=== PATIENT | male | born 1945 | race African-American/Black ===

== ENCOUNTER 2023-01-13 08:08 | Outpatient (OUT) | payer MEDICARE, OTHER, SELFPAY ==
--- NOTE | 2023-01-13 09:04 | CA_ITS ---
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 (right STONE 0.81, left STONE 0.82) Electronically Signed On 01-14-2023 7:16:46 EDT by LUZ ELENA JEFFERSON
== END 2023-01-13 08:09 | disposition home or self-care (01) ==
LOC: CARD 08:08
PROVIDERS: PCP Family Medicine
DX: I70.203 Unspecified atherosclerosis of native arteries of extremities, bilateral legs (principal)
CPT/HCPCS: 93923

== ENCOUNTER 2023-07-22 14:23 | Outpatient (OUT) | payer MEDICARE, OTHER, SELFPAY ==
--- NOTE | 2023-07-22 15:16 | CA_ITS ---
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
== END 2023-07-22 14:24 | disposition home or self-care (01) ==
LOC: CARD 14:23
PROVIDERS: PCP Family Medicine
DX: I73.9 Peripheral vascular disease, unspecified (principal)
CPT/HCPCS: 93923

== ENCOUNTER 2024-01-28 07:31 | Outpatient (OUT) | payer MEDICARE, OTHER, SELFPAY ==
--- OUTSIDE RECORDS SUMMARY | 2024-01-28 07:33 | XMS_ITS | CCD ---
Author Organization [facility] Care Team Providers Care [place] [facility] Director Name Role Phone DR MIHIR VERDE Attending Unavailable MEHREEN, DR ASH Consulting Unavailable MEHREEN, DR ASH Admitting Unavailable LULA, DR SEVERIANO Mcqueen Primary Care Unavailable LULA, DR SEVERIANO Mcqueen Attending Unavailable LULA, DR SEVERIANO Mcqueen Primary Care Unavailable LULA, DR SEVERIANO Mcqueen Admitting Unavailable ZIEBER, DR SLAVA Mckeon Consulting Unavailable LULA, DR SEVERIANO Mcqueen Consulting Unavailable Severiano Cotton MD Primary Care Provider MIHIR VERDE Attending Unavailable SEVERIANO COTTON Referring Unavailable SEVERIANO COTTON Primary Care Unavailable CHELLE BAL Attending Unavailable SEVERIANO COTTON Referring Unavailable SEVERIANO COTTON Primary Care Unavailable Allergies Allergy Classification Reported Allergen(s) Allergy Type Date of Onset Reaction(s) Facility (7 sources) Penicillins; Translations: [PENICILLINS] Propensity to adverse reactions to drug 07-06-2018 [facility] Medications Current Medications Medication Drug Class(es) Dates Sig (Normalized) Sig (Original) aspirin 81 mg delayed release oral tablet (5 sources) Platelet Aggregation Inhibitor, Nonsteroidal Anti-inflammatory Drug take 1 tablet by mouth in the morning aspirin 81 mg Take 1 tablet (81 mg total) by mouth in the morning. 0 Active cilostazol 100 mg oral tablet (5 sources) Phosphodiesterase 3 Inhibitor Start: 06-28-2023 take 1 tablet by mouth twice daily at bedtime cilostazoL (PLETAL) 100 mg tablet Indications: PAD (peripheral artery disease) (CMS-HCC) , Claudication (CMS-HCC) TAKE 1 TABLET BY MOUTH TWICE DAILY (MORNING AND AT BEDTIME) 180 tablet 0 06/28/2023 Active Problems Active Problems Problem Classification Problem Date Documented Da te Episodic/Chronic Cancer of kidney and renal pelvis (11 sources) Malignant tumor of kidney; Translations: [Malignant neoplasm of unspecified kidney, except renal pelvis] Onset: 09-21-2018 Resolved: 01-26-2019 04-13-2023 Chronic Disorders of lipid metabolism (7 sources) Hyperlipidemia; Translations: [Hyperlipidemia, unspecified] Onset: 01-19-2019 01-19-2019 Chronic Osteoarthritis (5 sources) Arthritis; Translations: [Unspecified osteoarthritis, unspecified site] Onset: 01-19-2019 01-19-2019 Chronic Peripheral and visceral atherosclerosis (13 sources) Peripheral vascular disease, unspecified; Translations: [Intermittent claudication] Onset: 01-19-2019 Chronic Thyroid disorders (5 sources) Thyroid nodule; Translations: [Nontoxic single thyroid nodule] Onset: 01-19-2019 01-19-2019 Chronic Past or Other Problems Problem Classification Problem Date Documented Da te Episodic/Chronic Essential hypertension (5 sources) Hypertensive disorder; Translations: [Essential (primary) hypertension] Onset: 01-19-2019 Resolved: 09-27-2023 01-19-2019 Chronic Nonspecific chest pain (5 sources) Precordial pain; Translations: [Precordial pain] Onset: 06-26-2022 06-26-2022 Episodic Other aftercare (1 source) 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 Dose reduction techniques were achieved by using automated exposure control and/or adjustment of mA and/or kV according to patient size and/or use of iterative reconstruction technique. FINDINGS: LUNGS: 4 mm nodule within right middle lobe adjacent the minor fissure, unchanged. Moderate emphysematous changes. No acute infiltrates. PLEURA: No mass, effusion, or pneumothorax. VASCULATURE: No abnormality. MITCH: Calcified right hilar lymph nodes compatible with chronic granulomatous disease. MEDIASTINUM: No mass or adenopathy. CARDIAC: No enlargement or pericardial thickening. AORTA: No aneurysm or dissection. CHEST WALL: No mass or axillary adenopathy. BONES: No bone lesion or fracture. LIMITED ABDOMEN: A few small hepatic cysts versus hemangiomas. No suspicious findings. Limited images of the upper abdomen. OTHER: Negative. IMPRESSION: 1. Stable small 4 mm nodule within right middle lobe, nonspecific. Consider follow-up imaging in one year to document stability. 2. Evidence of chronic granulomatous disease. 3. Moderate emphysematous changes. Electronically authenticated by: SLAVA MATTSON Date: 2021-10-23 14:54 Normal [facility] PROF CHEM 8 (BAS METB)on Anion gap [Moles/Vol] 14.1 mmol/L Normal [facility] Comment on above: Performed By: #### B MP #### [facility] [address] [address] [address] Michel Underwood Calcium [Mass/Vol] 8.7 mg/dL Normal 8.5-10.1 [facility] Comment on above: Performed By: #### B MP #### [facility] [address] [address] [address] Michel Underwood Chloride [Moles/Vol] 104 mmol/L Normal 98-107 [facility] Comment on above: Performed By: #### B MP #### [facility] [address] [address] [address] Michel Underwood CO2 [Moles/Vol] 24.9 mmol/L Normal 22.0-30.0 [facility] Comment on above: Performed By: #### B MP #### [facility] [address] [address] [address] Michel Underwood Creatinine [Mass/Vol] 1.40 mg/dL Critically high 0.66-1.25 [facility] Comment on above: Performed By: #### B MP #### [facility] [address] [address] [address] Michel Underwood EGFR-AF AUSTRIAN 60 mL/min/1.73m2 Normal >=60 [facility] Comment on above: Performed By: #### B MP #### [facility] [address] [address] [address] Michel Underwood EGFR-NON AF AUSTRIAN 50 mL/min/1.73m2 Critically low >=60 [facility] Comment on above: Performed By: #### B MP #### [facility] [address] [address] [address] Michel Underwood Glucose [Mass/Vol] 92 mg/dL Normal 74-106 [facility] Comment on above: Performed By: #### B MP #### [facility] [address] [address] [address] Michel Underwood Potassium [Moles/Vol] 4.0 mmol/L Normal 3.4-5.0 [facility] Comment on above: Performed By: #### B MP #### [facility] [address] [address] [address] Michel Underwood Sodium [Moles/Vol] 139 mmol/L Normal 137-145 [facility] Comment on above: Performed By: #### B MP #### [facility] [address] [address] [address] Michel Underwood Urea nitrogen [Mass/Vol] 18.0 mg/dL Normal 7.0-18.0 [facility] Comment on above: Performed By: #### B MP #### [facility] [address] [address] [address] Michel Underwood Urea nitrogen/Creatini ne [Mass ratio] 12.9 mg/mg Normal [facility] Comment on above: Performed By: #### B MP #### [facility] [address] [address] [address] Michel Undrewood Vital Signs Date Time Vital Sign Value Performing Clinician Facility 09-27-2023 12:54-0400 Body height 180.3 cm Chelle ROBERTS Work Phone: [facility] 09-27-2023 12:54-0400 Body mass index (BMI) [Ratio] 25.38 kg/m2 Chelle ROBERTS Work Phone: [facility] [employer] [facility] 09-27-2023 12:54-0400 Body weight 82.56 kg Chelle ROBERTS Work Phone: [facility] [employer] [facility] 09-27-2023 12:54-0400 Diastolic blood pressure 74 mm[Hg] Chelle ROBERTS Work Phone: [facility] [employer] [facility] 09-27-2023 12:54-0400 Heart rate 87 /min Chelle ROBERTS Work Phone: [facility] [employer] [facility] 09-27-2023 12:54-0400 SaO2% (BldA) [Mass fraction] 95 % Chelle ROBERTS Work Phone: [facility] [employer] [facility] 09-27-2023 12:54-0400 Systolic blood pressure 112 mm[Hg] hCelle ROBERTS Work Phone: [facility] [employer] [facility] 08-05-2023 14:01-0500 Diastolic blood pressure 80 mm[Hg] Mihir Verde MD Work Phone: [facility] [employer] [facility] 08-05-2023 14:01-0500 Heart rate 80 /min Mihir Verde MD Work Phone: [facility] [employer] [facility] 08-05-2023 14:01-0500 Systolic blood pressure 130 mm[Hg] Mihir Verde MD Work Phone: [facility] [employer] [facility] 08-05-2023 14:00-0500 Body height 180.3 cm Mihir Verde MD Work Phone: [facility] [employer] [facility] 08-05-2023 14:00-0500 Body mass index (BMI) [Ratio] 25.83 kg/m2 Mihir Verde MD Work Phone: [facility] [employer] [facility] 08-05-2023 14:00-0500 Body weight 84.01 kg Mihir Verde MD Work Phone: [facility] [employer] [facility] 08-05-2023 14:00-0500 Respiratory rate 18 /min Mihir Verde MD Work Phone: [facility] [employer] [facility] 08-05-2023 14:00-0500 SaO2% (BldA) [Mass fraction] 98 % Mihir Verde MD Work Phone: [facility] Comment on above: Room Air Encounters Encounter Date Encounter Type Care Provider Facility Start: 09-27-2023 End: 09-27-2023 ambulatory CHELLE BAL [facility] Start: 09-27-2023 End: 09-27-2023 Office outpatient visit 15 minutes Chelle Bal [employer] SPECIALIST-[employer] Work Phone: [facility] Comment on above: Mixed hyperlipidemia (Primary Dx) Start: 09-24-2023 Telephone encounter Courtney Gayle CMA [facility] Start: 08-05-2023 End: 08-05-2023 Orders Only Mirna Rice LPN [facility] Comment on above: PAD (peripheral paco ry disease) (CMS-HCC) (Primary Dx); Claudication (CMS-HCC) Start: 08-05-2023 End: 08-05-2023 Office outpatient visit 15 minutes Mihir Verde MD [facility] Comment on above: Claudication, interm ittent (CMS-HCC) (Primary Dx); Malignant neoplasm of left kidney (CMS-HCC); PAD (peripheral artery disease) (CMS-HCC) Start: 06-25-2022 End: 06-26-[address] MIHIR VERDE Facility:[facility] Start: 10-23-2021 End: 10-24-[address] SEVERIANO COTTON Facility:[facility] Procedures Date Procedure Procedure Detail Performing Clinician Start: 09-27-2023 Follow-up visit Follow-up CHELLE BAL Start: 09-27-2023 Ecg routine ecg w/le ast 12 lds w/i&r Chelle Bal [employer] PROP[employer] LOSS SPECIALIST-[employer] Work Phone: Plan of Treatment Date Care Activity Detail Author Start: 08-05-2024 Adult BMI Screening Adult BMI Screen ing [facility] Start: 08-05-2024 Tobacco Screening Tobacco Screening [facility] Start: 04-18-2024 End: 04-18-2024 Patient encounter procedure 04/18/2024 3:15 PM EDT Office Visit [facility] [address] [place] [address] [place] [address] [place] [id number] Flo Vaughn MD [address], [place] [id number] [facility] Start: 04-13-2024 Adult BMI Screening Adult BMI Screen ing [facility] Start: 04-13-2024 Tobacco Screening Tobacco Screening [facility] Start: 02-03-2024 End: 02-03-2024 Patient encounter procedure 02/03/2024 11:20 AM EDT Office Visit [facility] [address] [place] [address] Elio John MD [address] , [facility] [address] [place] [address] [facility] Start: 09-27-2023 End: 09-27-2023 Patient encounter procedure 09/27/2023 1:00 PM EDT Office Visit [facility] [address] [facility] [address] [place] [address] Chelle Bal, FIELD PROP[employer] LOSS SPECIALIST-[employer] [address] [place] [address] [facility] Start: 09-09-2023 Tobacco Counseling Tobacco Counselin g [facility] Start: 08-08-2023 End: 08-08-2024 US.doppler Extremity arteries - bilateral for physiologic artery study Vas art doppler lwr bilat mult lev/PVR Vascular Ultrasound Routine Malignant neoplasm of left kidney (CMS-HCC) Claudication, intermittent (CMS-HCC) PAD (peripheral artery disease) (CMS-HCC) Expected: 08/08/2023, Expires: 08/08/2024 [facility] Work Phone: Comment on above: Expected: 08/08/2023 , Expires: 08/08/2024 Start: 08-05-2023 End: 08-05-2024 US.doppler Extremity arteries - bilateral for physiologic artery study Vas art doppler lwr bilat mult lev/PVR Vascular Ultrasound Routine PAD (peripheral artery disease) ([facility]-HCC) Claudication ([facility]-HCC) Expected: 08/05/2023, Expires: 08/05/2024 DENA AMILCARO Work Phone: Comment on above: Expected: 08/05/2023 , Expires: 08/05/2024 Start: 03-12-2023 Influenza vaccination Influenza Vacc ine [facility] Start: 09-24-2012 Fall Risk Screening Fall Risk Screen ing [facility] Start: 09-24-1966 Administration of varicella zoster vaccine Zoster (Shingles) Vaccine (1 of 2) [facility] Start: 09-24-1966 DTaP,Tdap and Td Vac cines (1 - Tdap) DTaP,Tdap and Td Vaccines (1 - Tdap) [facility] Friday Start: 09-24-1965 Adult BMI Follow Up Plan Adult BMI Follow Up Plan [facility] Start: 1959 Depression Screening Depression Scre ening [facility] Start: 1945 Medicare Annual Well ness Visit Medicare Annual Wellness Visit [facility] Start: 1945 Tobacco Counseling Tobacco Counselin g [facility] Payers Date Payer Category Payer Unknown [employer] [id number] 2022-Present [id number] [address] [id number] 2022 Unknown [id number] 2012 Medicare MEDICARE MEDICAR E PART A & B [id number] 2012-Present [phone] [address] [place] [address] [id number] 1959 Medicare [id number] 1959 Unknown [id number] 1947 Unknown [id number] 1947 Unknown [id number] 1947 Unknown [id number] 1945 Unknown [id number] Social History Date Type Detail Facility Start: 06-26-2022 Tobacco smoking stat [facility] Smokes tobacco daily [facility] History of tobacco use Cigarette Smoker P [facility] Start: 08-22-2020 End: 06-26-2022 Cigarettes smoked current (pack per day) - Reported 0.5 [facility] Start: 06-26-2022 Tobacco use and exposure Smoke less tobacco non-user [facility] Start: 08-05-2023 End: 09-27-2023 Alcohol intake Current drinker of alcohol (finding) [facility] Start: 07-08-2018 End: 08-22-2020 Alcohol Use Disorder Identification Test - Consumption [AUDIT-C] [facility] Frequency of Alcohol Consumption Never [facility] Start: 06-26-2022 Tobacco Comment Has decreased recently [facility] Start: 01-19-2019 Alcohol Comment social [facility] Start: 1945 Sex Assigned At Not on file P [facility] Goals Date Patient Goal Desired Activity /State Personal health goal Comment on above: Formatting of this n ote might be different from the original. Evaluation of progress towards goal: Pt to discharge home with and safe self care Clinical Notes 08-05-2023 to 09-27-2023 Chelle Bal APRN-[employer]IVER [employer] - 09/27/2023 1:00 PM EDTPatient InstructionsTelephone Encounter - Courtney Gayle CMA - 09/24/2023 12:49 PM Sandra Verde MD - 08/05/2023 9:10 AM EST Note Date & Type Note Facility 09-27-2023 History of Presen t illness Narrative April Larose Date of visit: 09/27/2023 Date of : 1945 Age: 78 y.o. Patient Active Problem List Diagnosis Cancer of kidney (CMS-HCC) Claudication, intermittent (CMS-HCC) Thyroid nodule Arthritis Hyperlipidemia Precordial pain Allergies Allergen Reactions Penicillins Dizziness Current Outpatient Medications Medication Sig Dispense Refill aspirin 81 mg Take 1 tablet (81 mg total) by mouth in the morning. cilostazoL (PLETAL) 100 mg tablet TAKE 1 TABLET BY MOUTH TWICE DAILY (MORNING AND AT BEDTIME) 180 tablet 0 No current facility-administered medications for this visit. Chief Complaint Patient presents with Follow-up History of Present Illness OE is a 78 yo M who presents to the office today for his 6 month follow up. He has a hx of chronic tobacco use, PAD with claudication, and HLD. Stress test 2021 did not show ischemia nor did it show wall motion abnormalities; It did show preserved LV function. Last lipid panel was from 2 years prior and had LDL 119, HDL 47. Today, he denies chest pain, syncope, palpitations, shortness of breath. Patient was seen when Dr. Velazquez was readily available in office. Past Medical History: Diagnosis Date Arthritis right hip Cancer of kidney (CMS-HCC) left Cataract with lens implants Claudication, intermittent (CMS-HCC) Dental disease upper partial Hyperlipidemia Hypertension Lumbar spondylosis with myelopathy Thyroid nodule Tobacco user Visual impairment glasses No data recorded No data recorded No data recorded Past Surgical History: Procedure Laterality Date Aortography abdominal 03/09/2019 Performed by Mihir Verde MD at [facility] BILATERAL LOWER EXTREMITY ANGIOGRAM Bilateral 03/09/2019 Performed by Mihir Verde MD at [facility] CATARACT EXTRACTION, BILATERAL COLONOSCOPY NEPHRECTOMY PARTIAL LEFT, INTRAOPERATIVE ULTRASOUND Left 01/26/2019 Performed by Flo Vaughn MD at [facility] Right Family History Problem Relation Age of Onset Hypertension Father Cancer Brother Cancer Brother Anesthesia problems Neg Hx Social History Socioeconomic History Marital status: Spouse name: Not on file Number of children: Not on file Years of education: Not on file Highest education level: Not on file Occupational History Not on file Tobacco Use Smoking status: Every Day Packs/day: 0.50 Years: 50.00 Additional pack years: 0.00 Total pack years: 25.00 Types: Cigarettes Smokeless tobacco: Never Tobacco comments: Has decreased recently Vaping Use Vaping Use: Never used Substance and Sexual Activity Alcohol use: Yes Comment: social Drug use: No Sexual activity: Defer Other Topics Concern Caffeine Use Yes Social History Narrative Not on file Social Determinants of Health Financial Resource Strain: Not on file Food Insecurity: No Food Insecurity (08/05/2023) Hunger Screening Food Insecurity - Worry: Never True Food Insecurity - Inability: Never True Transportation Needs: Not on file Physical Activity: Not on file Stress: Not on file Social Connections: Not on file Interpersonal Safety: Not on file Housing Instability: Not on file Review of Systems Review of Systems Constitutional: Negative for malaise/fatigue. Respiratory: Negative for cough, shortness of breath and wheezing. Hematologic/Lymphatic: Does not bruise/bleed easily. Musculoskeletal: Positive for joint swelling. Negative for joint pain, muscle cramps and muscle weakness. Gastrointestinal: Negative for heartburn, nausea and vomiting. Genitourinary: Negative for hematuria. Neurological: Negative for dizziness, headaches and light-headedness. Psychiatric/Behavioral: Negative for depression. The patient is not nervous/anxious. CARDIOVASCULAR: Please review HPI. Physical Examination General appearance: Alert, oriented and cooperative. In no acute distress. Skin: Warm and dry to touch. Head: Normocephalic, without obvious abnormality, atraumatic. Ears, Nose, Mouth, Throat: Throat clear without erythema or exudate. Dentition intact. Eyes: Conjunctivae unremarkable, EOM intact. Neck: No JVD, No carotid bruit. Neck supple, trachea midline. Respiratory: Clear to auscultation bilaterally, no use of accessory muscles. Cardiovascular: RRR with normal S1 and S2 with no murmurs. Gastrointestinal: Soft, non-tender. Bowel sounds normal. Musculoskeletal: No peripheral edema. Neurologic: Oriented to time, person and place, affect appropriate. No focal/major motor defects noted. Psychiatric: Appropriate mood, memory and judgement. VITAL SIGNS: BP 112/74 Pulse 87 Ht 180.3 cm (5' 11 ) Wt 82.6 kg (182 lb) SpO2 95% BMI 25.38 kg/m No orders of the defined types were placed in this encounter. There are no discontinued medications. IMPRESSIONS/PLAN 1. Mixed hyperlipidemia - POCT EKG PLAN Blood pressure and heart rate are well controlled. Due for a lipid panel. He appears compensated. Continue cardiac medications. Smoking cessation education provided. Recommend follow-up in 1 year. TODAYS ORDERS Orders Placed This Encounter Procedures POCT EKG FOLLOW UP No follow-ups on file. PCP: SEVERIANO COTTON MD Referring Physician: Severiano Cotton MD [address] [place] [address] ARMANDO Cardoza 09/27/23 1318 documented in this encounter [facility] 09-27-2023 Instructions ARMANDO Cardoza - 09/27/2023 1:00 PM EDT PLAN Blood pressure and heart rate are well controlled. Due for a lipid panel. Continue cardiac medications. Recommend follow-up in 1 year. Please call the office if you develop new or worsening symptoms and we will see you sooner. documented in this encounter [facility] 09-24-2023 Miscellaneous Notes Formattin g of this note might be different from the original. Called patient to remind them to bring their most current copy of their medication list with them to their appt. Patient verbalizes understanding. documented in this encounter [facility] 09-24-2023 Telephone encount er Note Called patient to remind them to bring their most current copy of their medication list with them to their appt. Patient verbalizes understanding. [facility] 08-05-2023 History of Presen t illness Narrative CHIEF COMPLAINT: Chief Complaint Patient presents with Follow-up Follow up with testing prior. Testing completed at [place]. HISTORY OF PRESENT ILLNESS: April Larose is a 77 y.o. male who presents to the office today for evaluation of Peripheral arterial disease and claudications. Patient is doing well. Patient is able to walk as much as he needs to. Patient reports some pain in the calf areas if he walks more than 2 blocks distance. Patient at rest has no pain at all. He denies any discoloration or wounds on his lower extremities. Patient is on aspirin Pletal. Patient has no new complaints. He had ABIs done recently. ALLERGIES: Allergies Allergen Reactions Penicillins Dizziness MEDICATIONS: Current Outpatient Medications Medication Sig Dispense Refill aspirin 81 mg Take 1 tablet (81 mg total) by mouth in the morning. cilostazoL (PLETAL) 100 mg tablet TAKE 1 TABLET BY MOUTH TWICE DAILY (MORNING AND AT BEDTIME) 180 tablet 0 No current facility-administered medications for this visit. SOCIAL HISTORY: Social History Tobacco Use Smoking status: Every Day Packs/day: 0.50 Years: 50.00 Additional pack years: 0.00 Total pack years: 25.00 Types: Cigarettes Smokeless tobacco: Never Tobacco comments: Has decreased recently Substance Use Topics Alcohol use: Yes Comment: social REVIEW OF SYSTEMS: Review of Systems Constitutional: Negative for activity change, appetite change, chills, fatigue, fever and unexpected weight change. HENT: Negative for facial swelling and trouble swallowing. Eyes: Negative for visual disturbance. Respiratory: Negative for chest tightness and shortness of breath. Cardiovascular: Positive for leg swelling. Negative for chest pain. Gastrointestinal: Negative for abdominal pain. Genitourinary: Negative for flank pain and frequency. Musculoskeletal: Positive for arthralgias, back pain and myalgias. Negative for joint swelling. Skin: Negative for color change, pallor, rash and wound. Neurological: Negative for dizziness, syncope, facial asymmetry, speech difficulty, weakness, light-headedness and numbness. Hematological: Negative for adenopathy. PHYSICAL EXAM: Physical Exam Vitals reviewed. Constitutional: General: He is not in acute distress. Neck: Vascular: No JVD. Cardiovascular: Rate and Rhythm: Normal rate. Pulses: Radial pulses are 2+ on the right side and 2+ on the left side. Dorsalis pedis pulses are detected w/ doppler on the right side and 2+ on the left side. Posterior tibial pulses are detected w/ doppler on the right side and 2+ on the left side. Heart sounds: No murmur heard. Comments: No carotid bruits. Pulmonary: Breath sounds: Normal breath sounds. Abdominal: Palpations: Abdomen is soft. There is no mass. Tenderness: There is no abdominal tenderness. Musculoskeletal: General: No tenderness. Cervical back: Neck supple. Skin: General: Skin is warm. Coloration: Skin is not pale. Findings: No erythema. Neurological: Mental Status: He is alert and oriented to person, place, and time. VASCULAR EXAM: Vascular: Right Lower Extremity Right lower extremity pulses DP: detected w/ doppler Doppler findings: biphasic PT: detected w/ doppler Doppler findings: biphasic Right lower extremity edema: 1+ and pitting Left Lower Extremity Left lower extremity pulses DP: 2+ PT: 2+ Left lower extremity edema: 1+ and pitting Right Upper Extremity Right upper extremity pulses Radial: 2+ Left Upper Extremity Left upper extremity pulses Radial: 2+ ASSESSMENT AND PLAN: April was seen today for follow-up. Diagnoses and all orders for this visit: Claudication, intermittent (CMS-HCC) - Vas art doppler lwr bilat mult lev/PVR; Future Malignant neoplasm of left kidney (CMS-HCC) - Vas art doppler lwr bilat mult lev/PVR; Future PAD (peripheral artery disease) (CMS-HCC) - Vas art doppler lwr bilat mult lev/PVR; Future I reviewed his ABIs that were done recently. He has 0.86 on the right side and on the left side 0.84. Patient appears to be stable. I will see him back in 6 months with follow-up ABIs. Continue conservative management with aspirin and Pletal. documented in this encounter [facility] Evaluation note Diagnosis PAD (peripheral artery disease) (CMS-HCC)- Primary Unspecified peripheral vascular disease Claudication (CMS-HCC) Unspecified peripheral vascular disease [facility] Diagnosis Claudication, intermittent (CMS-HCC)- Primary Unspecified peripheral vascular disease Malignant neoplasm of left kidney (CMS-HCC) PAD (peripheral artery disease) (CMS-HCC) Unspecified peripheral vascular disease [facility]* Diagnosis Mixed hyperlipidemia- Primary [facility] this [facility] filedocumented in [facility] on filedocumented in [facility] encounter [facility] on filedocumented in this encounter [facility] Summary Purpose Family History No Family History Records FoundNo Family History Records FoundNo Family History Records Found Advance Directives No Advanced Directives Records FoundLatest Code Status on File Code Status Date Activated Date Inactivated Comments Full Code 01/27/2019 8:57 AM 01/28/2019 4:18 PM Latest Code Status on File Code Status Date Activated Date Inactivated Comments Full Code 01/27/2019 8:57 AM 01/28/2019 4:18 PM Reason for Referral Specialty Diagnoses / Procedures Referred By Contac t Referred To Contact Diagnoses PAD (peripheral artery disease) ([facility]) Claudication ([facility]-HCC) Procedures Vas art doppler lwr bilat mult lev/PVR Mihir Verde MD [address], [address] [address] Referral ID Status Reason Start Date Expiration Date V isits Requested Visits Authorized [id number] Pending Review 08/05/2023 08/04/2024 1 1 Specialty Diagnoses / Procedures Referred By Contac t Referred To Contact Diagnoses Malignant neoplasm of left kidney ([facility]-HCC) Claudication, intermittent (CMS-HCC) PAD (peripheral artery disease) ([facility]-HCC) Procedures Vas art doppler lwr bilat mult lev/PVR Mihir Verde MD [address], [address] [address] Referral ID Status Reason Start Date Expiration Date V isits Requested Visits Authorized [id number] Pending Review 08/08/2023 08/07/2024 1 1 Additional Source Comments (unrecognized sect ion and content) No Status Records FoundNo Status Records FoundNo Status Records Found INFORMATION SOURCE (unrecogn ized section and content) DATE CREATED AUTHOR 07/03/2022 [facility] DATE CREATED AUTHOR AUTHOR'S ORGANIZ ATION 08/08/2023 [facility] DATE CREATED AUTHOR AUTHOR'S ORGANIZ ATION 09/28/2023 [facility] Care Teams (unrecognized sec tion and content) [facility] Director Relationship Specialty Start Date End Date Severiano Cotton MD [address] [place] [address] PCP - General Family Medicine 09/21/18 [facility] Director Relationship Specialty Start Date End Date Severiano Cotton MD [address] [place] [address] PCP - General Family Medicine 09/21/18 [facility] Director Relationship Specialty Start Date End Date Severiano Cotton MD [address] [place] [address] PCP - [facility] 09/21/18 [facility] Director Relationship Specialty Start Date End Date Severiano Cotton MD [address] [place] [address] PCP - [facility] 09/21/18 [facility] Director Relationship Specialty Start Date End Date Severiano Cotton MD [address], [place] [id number] PCP - General [facility] 09/21/18 Reason for Visit (unrecogniz ed section and content) Reason Comments Follow-up Follow up with saranya cox. Testing completed at [facility]. Reason Comments Follow-up FOR RECORDS PERTAINING TO PATIENTS WHO ARE OR HAVE BEEN ENROLLED IN A CHEMICAL DEPENDENCY/SUBSTANCEABUSE PROGRAM, SOME INFORMATION MAY BE OMITTED. This clinical summary was aggregated from multiple sources. Caution should be exercised in using it in the provision of clinical care. This summary normalizes information from multiple sources, and as a consequence, information in this document may materially change the coding, format and clinical context of patient data. In addition, data may be omitted in some cases. CLINICAL DECISIONS SHOULD BE BASED ON THE PRIMARY CLINICAL RECORDS. [employer] provides no warranty or guarantee of the accuracy or completeness of information in this document.
--- NOTE | 2024-01-28 07:35 | VEIN_ITS ---
[facility] [place] [address] Patient Name: APRIL LAROSE MRN: [id number] date: 1945 Sex: M Assigned Patient Location: Current Patient Location: Accession/Order Number: [id number] Exam Date: 01/28/2024 07:36 Report Date: 01/31/2024 07:33 At the request of: MIHIR VERDE Procedure: VC SEGMENTAL PRESSURES EXAM: VC SEGMENTAL PRESSURES HISTORY: Peripheral artery disease I73.9 COMPARISON: None. FINDINGS: Segmental pressures presented as follows (right, left) in mmHg. Brachial: 144, 136 Upper thigh: 187, 174 Lower thigh: 195, 143 Calf: 136, 130 DPA: 118, 110 MEDICAL BILLING SPECIALIST: 113, 114 1st Toe: 101, 125 STONE: 0.82, 0.79 TBI: 0.7, 0.87 The ABIs suggest mild arterial occlusive disease The TBI's are normal PVR waveforms: Right leg: Thigh: Normal Above knee: Normal Below knee: Normal Right ankle: Mild ischemic waveform Right metatarsal: Moderate ischemic waveform Left leg: Thigh: Mild ischemic waveform Above knee: Mild ischemic waveform Below knee: Mild ischemic waveform Right ankle: Ischemic waveform Left metatarsal: Moderate ischemic waveform VEIN/VC SEGMENTAL PRESSURES IMPRESSION: 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
== END 2024-01-28 07:32 | disposition home or self-care (01) ==
LOC: VC 07:31
PROVIDERS: PCP Family Medicine
DX: I73.9 Peripheral vascular disease, unspecified (principal)
CPT/HCPCS: 93923